=== PATIENT | female | born 1985 | race African-American/Black ===

== ENCOUNTER 2016-11-05 13:27 | Emergency (ER) | payer OTHER ==
[~2016-11-05] VITALS: Ht 165.1 cm; Wt 113.4 kg
[~2016-11-05 13:27] MED LIST: ADVAIR HFA 230M1 AER INH; ALBUTEROL INHAL17 GM IH; ALBUTEROL2.5 MG/0.1 IH; ALBUTEROL2.5 MG/0.5 INH; ALBUTEROL2.5 MG/31 INH; ALBUTEROL2.5 MG/32 IH; ALLEGRA ALLERG180 MG PO; AMOXICILLIN 50500 MG PO; COLACE100 MG PO; DOXYCYCLINE 10100 MG PO; DULERA 200 MCG/13 GM IH; FLONASE 0.05%50 MCG NASAL; GLYCOLAX POWDER17 GM PO; HYDROCODON-ACE1 EAC5 PO; IBUPROFEN 600600 M1 PO; IBUPROFEN 800800 M1 PO; IPRAT-ALBUT 0.5-3 ML IH; MACROBID 100 M100 M1 PO; MEDROL DOSPAK21 TAB PO; MOTION RELIEF25 MG PO; MUCINEX TA600 MG/TA1 PO; NORCO 5-325 TA1 EACH PO; PENICILLIN VK500 M1 PO; PERCOCET 5-3251 EACH; PREDNISONE 10 M10 MG PO; PREDNISONE 20 M20 M1 PO; PREDNISONE 20 M20 MG PO; PREDNISONE 5 MG5 M1 PO; PREDNISONE50 MG PO; PROVENTIL HFA6.7 G1 INH; RANITIDINE 150150 MG PO; SENNA PO; SYMBICORT80 MCG/4.1; TESSALON PERLE100 MG PO; TYLENOL EX-STR500 M2 PO; ULTRAM 50MG TAB50 MG PO; UNK INHALER; VENTOLIN HFA 1818 GM INH; ZOFRAN ODT4 MG PO; ZOFRAN4 MG PO; ZPAK PO; [UNRECOGNIZED DRUG - OTHER]
[2016-11-05] MEDS ORDERED: PENICILLIN VK500 M1 PO (13:33)
[2016-11-05] MEDS ORDERED: NORCO 5-325 TA1 EACH PO (13:33)
== END 2016-11-05 14:10 | disposition home or self-care (01) ==
LOC: ER 13:27
DX: K08.89 Other specified disorders of teeth and supporting structures (principal); J45.909 Unspecified asthma, uncomplicated; G47.30 Sleep apnea, unspecified; E66.9 Obesity, unspecified; Z68.41 Body mass index [BMI] 40.0-44.9, adult

== ENCOUNTER 2017-05-17 11:08 | Emergency (ER) | payer OTHER ==
[~2017-05-17] VITALS: Ht 165.1 cm; Wt 117.9 kg
[2017-05-17] MEDS ORDERED: PREDNISONE 20 M20 MG PO (12:42)
[2017-05-17] MEDS ORDERED: ALBUTEROL2.5 MG/31 INH (12:42)
[2017-05-17] MEDS ORDERED: VENTOLIN HFA 1818 GM INH (12:42)
[2017-05-17 13:46] LABS: ABSOLUTE NEUTROPHILS 1.9 thou/uL (1.4-8.2); BASOPHILS 0.7 % (0.0-2.0); EOSINOPHILS 9.7 % (0.0-3.0); HEMATOCRIT 37.3 % (37.0-47.0); HEMOGLOBIN 12.1 gm/dL (12.0-15.0); LYMPHOCYTES 31.9 % (24.0-44.0); MANUAL DIFF NO; MCH 28.5 pg (26.0-34.0); MCHC 32.4 g/dL (28.0-37.0); MCV 87.8 fL (80.0-100.0); MONOCYTES 10.2 % (1.0-8.0); PLATELET COUNT 251 thou/uL (150-400); POLYS 47.5 % (36.0-66.0); RBC 4.25 mil/uL (4.20-5.00); RDW 13.4 % (10.5-14.5); WBC 3.9 thou/uL (4.0-11.0)
[2017-05-17 13:52] LABS: CALCIUM 8.5 mg/dL (8.5-10.1); CREATININE 0.5 mg/dL (0.6-1.0); POTASSIUM 3.9 mmol/L (3.5-5.1)
[2017-05-17 13:58] LABS: ALBUMIN 2.9 g/dL (3.4-5.0); TOTAL BILIRUBIN 0.2 mg/dL (<0.1-1.0); TOTAL PROTEIN 6.3 g/dL (6.4-8.2)
== END 2017-05-17 14:52 | disposition home or self-care (01) ==
LOC: ER 11:08
PROVIDERS: Emergency Medicine
DX: J45.901 Unspecified asthma with (acute) exacerbation (principal); G47.30 Sleep apnea, unspecified; F10.99 Alcohol use, unspecified with unspecified alcohol-induced disorder; Z88.8 Allergy status to other drugs, medicaments and biological substances

== ENCOUNTER 2019-01-24 23:14 | Emergency (ER) | payer OTHER ==
[~2019-01-24] VITALS: Ht 165.1 cm; Wt 104.3 kg
[2019-01-24 23:44] LABS: URINE BILIRUBIN NEGATIVE (Negative); URINE BLOOD NEGATIVE (Negative); URINE CLARITY CLEAR; URINE COLOR YELLOW; URINE GLUCOSE-RANDOM* NEGATIVE (Negative); URINE KETONES NEGATIVE (Negative); URINE LEUKOCYTES-REFLEX NEGATIVE (Negative); URINE NITRITE-REFLEX NEGATIVE (Negative); URINE PROTEIN (DIPSTICK) TRACE (Negative); URINE SPECIFIC GRAVITY 1.015 (1.005-1.035)
[2019-01-25 00:07] LABS: ABSOLUTE NEUTROPHILS 2.7 thou/uL (1.4-8.2); BASOPHILS 0.6 % (0.0-2.0); EOSINOPHILS 4.5 % (0.0-3.0); HEMATOCRIT 34.7 % (37.0-47.0); HEMOGLOBIN 11.6 gm/dL (12.0-15.0); LYMPHOCYTES 35.9 % (24.0-44.0); MCH 28.7 pg (26.0-34.0); MCHC 33.4 g/dL (28.0-37.0); MCV 86.1 fL (80.0-100.0); MONOCYTES 8.6 % (1.0-8.0); PLATELET COUNT 242 thou/uL (150-400); POLYS 50.4 % (36.0-66.0); RBC 4.03 mil/uL (4.20-5.00); RDW 13.9 % (10.5-14.5); WBC 5.4 thou/uL (4.0-11.0)
[2019-01-25 00:14] LABS: CREATININE 0.6 mg/dL (0.6-1.0); POTASSIUM 3.9 mmol/L (3.5-5.1)
[2019-01-25 00:20] LABS: ALBUMIN 3.1 g/dL (3.4-5.0); TOTAL BILIRUBIN 0.1 mg/dL (<0.1-1.0); TOTAL PROTEIN 7.5 g/dL (6.4-8.2)
[2019-01-25] MEDS ORDERED: NORCO 5-325 TA1 EAC1 PO (05:06)
[2019-01-25 05:16] VITALS: BP 125/50
== END 2019-01-25 05:29 | disposition home or self-care (01) ==
LOC: ER 23:14
PROVIDERS: Emergency Medicine
DX: R10.31 Right lower quadrant pain (principal); R10.32 Left lower quadrant pain; J45.909 Unspecified asthma, uncomplicated; G47.30 Sleep apnea, unspecified; E66.9 Obesity, unspecified; Z68.38 Body mass index [BMI] 38.0-38.9, adult; Z88.6 Allergy status to analgesic agent

== ENCOUNTER 2019-05-03 06:43 | Emergency (ER) | payer OTHER ==
[~2019-05-03] VITALS: Ht 165.1 cm; Wt 122.5 kg
[~2019-05-03 06:43] MED LIST changes: +NORCO 5-325 TA1 EAC1 PO
[2019-05-03] MEDS ORDERED: VENTOLIN HFA 1818 GM INH (08:14)
[2019-05-03] MEDS ORDERED: PREDNISONE 20 M20 MG PO (08:14)
[2019-05-03 08:29] VITALS: BP 118/67
== END 2019-05-03 08:34 | disposition home or self-care (01) ==
LOC: ER 06:43
DX: J45.901 Unspecified asthma with (acute) exacerbation (principal); G47.30 Sleep apnea, unspecified; E66.9 Obesity, unspecified

== ENCOUNTER 2019-09-01 21:21 | Inpatient (IN) | payer OTHER ==
[~2019-09-01] VITALS: Ht 165.1 cm; Wt 128.4 kg
[2019-09-01 21:23] VITALS: BP 144/82
[2019-09-01 21:34] LABS: PCO2 62.2 mmHg (35.0-45.0); PO2 241.2 mmHg (80.0-100.0); sO2 99.3 % (92.0-98.0)
[2019-09-01 21:35] LABS: pH 7.186 (7.360-7.450)
[2019-09-01 21:59] LABS: HEMATOCRIT 37.4 % (37.0-47.0); HEMOGLOBIN 12.1 gm/dL (12.0-15.0); MCH 28.9 pg (26.0-34.0); MCHC 32.3 g/dL (28.0-37.0); MCV 89.4 fL (80.0-100.0); PLATELET COUNT 378 thou/uL (150-400); RBC 4.19 mil/uL (4.20-5.00); RDW 14.4 % (10.5-14.5); WBC 8.8 thou/uL (4.0-11.0)
[2019-09-01 22:07] LABS: ANION GAP 9 mmol/L (7-16); BUN 18 mg/dL (7-18); CALCIUM 8.8 mg/dL (8.5-10.1); CHLORIDE 100 mmol/L (98-107); CO2 26 mmol/L (21-32); CREATININE 0.8 mg/dL (0.6-1.0); GLUCOSE 242 mg/dL (74-106); POTASSIUM 4.4 mmol/L (3.5-5.1); SODIUM 135 mmol/L (136-145)
[2019-09-01 22:15] LABS: TROPONIN-I <0.06 ng/mL (<0.06)
[2019-09-01 22:34] LABS: ABSOLUTE NEUTROPHILS 1.8 thou/uL (1.4-8.2); ANISOCYTOSIS 1+; POLYCHROMASIA OCCASIONAL
[2019-09-02] VITALS (7 sets, daily range): BP systolic 98–137; BP diastolic 58–84
[2019-09-02 02:55] LABS: BE(vivo) -3.2 mmol/L (-2 to +3); HCO3 22.4 mmol/L (22.0-26.0); PO2 62.9 mmHg (80.0-100.0); pH 7.344 (7.360-7.450); sO2 90.9 % (92.0-98.0)
[2019-09-02 22:07] LABS: GLYCOHEMOGLOBIN (HGB A1C) 6.3 % (4.8-5.6)
[2019-09-03 05:54] LABS: HEMATOCRIT 33.9 % (37.0-47.0); MCH 28.9 pg (26.0-34.0); MCHC 32.4 g/dL (28.0-37.0); MCV 89.1 fL (80.0-100.0); RBC 3.8 mil/uL (4.20-5.00); RDW 14.3 % (10.5-14.5); WBC 10.7 thou/uL (4.0-11.0)
[2019-09-03 06:00] LABS: CALCIUM 8.1 mg/dL (8.5-10.1); CREATININE 0.5 mg/dL (0.6-1.0); MAGNESIUM 1.8 mg/dL (1.8-2.4); POTASSIUM 4.3 mmol/L (3.5-5.1)
[2019-09-03 06:06] VITALS: BP 110/67
--- NOTE | 2019-09-03 07:43 | EKG ---
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 : 1985 Requested By: Andrey De La Rosa Order Number: [id number] MD: River Owens Measurements Intervals [place] Rate: 134 P: 74 VA: 138 QRS: 71 QRSD: 101 T: 53 QT: 298 QTc: 445 Interpretive Statements Sinus tachycardia RSR' in V1 or V2, probably normal variant Compared to ECG 05/20/2014 14:49:05 Heart rate has increased Electronically Signed On 09-03-2019 7:42:04 CDT by River Owens [email or web address] <ELECTRONICALLY SIGNED> By: River Owens MD, [facility] 09/03/19 0742 23 23 River Owens MD, [facility] /EPI
[2019-09-03 08:40] VITALS: BP 123/78
[2019-09-03 09:54] VITALS: BP 123/78
[2019-09-03 10:57] LABS: CHOLESTEROL 185 mg/dL (<200); HDL CHOLESTEROL 68 mg/dL (>40); LDL CHOLESTEROL 112 mg/dL (<100); TC:HDL 2.7 Ratio (Not establshd); TRIGLYCERIDE 27 mg/dL (<150); VLDL 5 mg/dL (<40)
[2019-09-03 12:28] VITALS: BP 125/76
[2019-09-03 15:41] VITALS: BP 132/74
[2019-09-03 20:35] VITALS: BP 128/77
[2019-09-04 03:06] LABS: HEP B SURFACE Ab(ANTI-HBS Reactive (()); HEPATITIS B SURFACE AG Negative (Negative); HEPATITIS C VIRUS AB 0.1 (0.0-0.9); HIV ANTIBODY Non Reactive (Non Reactive)
[2019-09-04 06:07] VITALS: BP 113/58
[2019-09-04 09:01] VITALS: BP 104/67
[2019-09-04 12:10] VITALS: BP 132/67
[2019-09-04] MEDS ORDERED: VENTOLIN HFA 1818 GM INH (13:32)
[2019-09-04] MEDS ORDERED: ALBUTEROL2.5 MG/0.5 INH (13:33)
[2019-09-04] MEDS ORDERED: PREDNISONE 10 M10 MG PO (13:36)
[2019-09-04 14:02] VITALS: BP 132/67
== END 2019-09-04 15:09 | disposition home or self-care (01) | DRG 189 ==
LOC: ER 21:21 → EROBS 23:22 → 2N 23:22
PROVIDERS: Emergency Medicine; Nurse Practitioner Family; ADMIT Internal Medicine
DX: J96.01 Acute respiratory failure with hypoxia (principal); J45.901 Unspecified asthma with (acute) exacerbation; Z68.42 Body mass index [BMI] 45.0-49.9, adult; J96.02 Acute respiratory failure with hypercapnia; R73.9 Hyperglycemia, unspecified; E66.01 Morbid (severe) obesity due to excess calories; Z79.899 Other long term (current) drug therapy
CPT/HCPCS: 10081

== ENCOUNTER 2019-11-01 11:19 | Emergency (ER) | payer OTHER ==
[~2019-11-01] VITALS: Ht 165.1 cm; Wt 127.0 kg
[2019-11-01] MEDS ORDERED: MOBIC7.5 MG PO ×2 (14:08→14:09)
[2019-11-01 14:34] VITALS: BP 112/79
== END 2019-11-01 14:34 | disposition home or self-care (01) ==
LOC: ER 11:19
DX: S76.201A Unspecified injury of adductor muscle, fascia and tendon of right thigh, initial encounter (principal); J45.909 Unspecified asthma, uncomplicated; E66.9 Obesity, unspecified; X58.XXXA Exposure to other specified factors, initial encounter; Y93.89 Activity, other specified; Y92.89 Other specified places as the place of occurrence of the external cause; Y99.8 Other external cause status

== ENCOUNTER 2019-11-09 04:19 | Emergency (ER) | payer OTHER ==
[~2019-11-09] VITALS: Ht 165.1 cm; Wt 125.2 kg
[~2019-11-09 04:19] MED LIST changes: +MOBIC7.5 MG PO
[2019-11-09 04:45] LABS: ABSOLUTE NEUTROPHILS 2.5 thou/uL (1.4-8.2); EOSINOPHILS 6.7 % (0.0-3.0); HEMATOCRIT 35.4 % (37.0-47.0); HEMOGLOBIN 11.7 gm/dL (12.0-15.0); LYMPHOCYTES 42.5 % (24.0-44.0); MCH 29.2 pg (26.0-34.0); MCV 88.3 fL (80.0-100.0); PLATELET COUNT 275 thou/uL (150-400); POLYS 41.8 % (36.0-66.0); RBC 4.01 mil/uL (4.20-5.00); WBC 6.1 thou/uL (4.0-11.0)
[2019-11-09 05:05] LABS: CALCIUM 8.4 mg/dL (8.5-10.1); CREATININE 0.7 mg/dL (0.6-1.0)
[2019-11-09] MEDS ORDERED: ALBUTEROL2.5 MG/31 INH (05:44)
[2019-11-09] MEDS ORDERED: PREDNISONE 20 M20 M1 PO (05:44)
[2019-11-09 06:01] VITALS: BP 125/69
== END 2019-11-09 06:05 | disposition home or self-care (01) ==
LOC: ER 04:19
PROVIDERS: Emergency Medicine
DX: J45.901 Unspecified asthma with (acute) exacerbation (principal); E66.9 Obesity, unspecified; G47.30 Sleep apnea, unspecified; Z68.42 Body mass index [BMI] 45.0-49.9, adult; Z98.51 Tubal ligation status

== ENCOUNTER 2020-02-22 04:40 | Emergency (ER) | payer OTHER ==
[~2020-02-22] VITALS: Ht 165.1 cm; Wt 122.5 kg
[2020-02-22 05:22] LABS: ABSOLUTE NEUTROPHILS 2.5 thou/uL (1.4-8.2); BASOPHILS 0.5 % (0.0-2.0); EOSINOPHILS 3.8 % (0.0-3.0); HEMATOCRIT 35.9 % (37.0-47.0); HEMOGLOBIN 11.8 gm/dL (12.0-15.0); LYMPHOCYTES 47.4 % (24.0-44.0); MONOCYTES 7.2 % (1.0-8.0); PLATELET COUNT 246 thou/uL (150-400); POLYS 41.1 % (36.0-66.0); RBC 4.07 mil/uL (4.20-5.00); RDW 14.2 % (10.5-14.5); WBC 6.2 thou/uL (4.0-11.0)
[2020-02-22 05:26] LABS: CALCIUM 8.4 mg/dL (8.5-10.1); CREATININE 0.7 mg/dL (0.6-1.0); POTASSIUM 3.9 mmol/L (3.5-5.1)
[2020-02-22 05:36] LABS: ALBUMIN 3.2 g/dL (3.4-5.0); TOTAL BILIRUBIN 0.2 mg/dL (0.2-1.0); TOTAL PROTEIN 7.2 g/dL (6.4-8.2); TROPONIN-I 0.11 ng/mL (<0.06)
[2020-02-22 07:07] VITALS: BP 127/83
--- NOTE | 2020-02-22 10:21 | EKG ---
[facility] [place] [address] ELECTROCARDIOGRAM REPORT Name: KENIA FITZGERALD Room #: DEP [facility]#: [id number] Admission: 02/22/20 Attend Phys: Discharge: 02/22/20 Date of : 85 Report #: [id number] THIS REPORT FOR: cc: VENKATESH - No family physician/PCP FAM - No family physician/PCP River Owens MD 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
== END 2020-02-22 07:09 | disposition still patient (30) ==
LOC: ER 04:40
PROVIDERS: Emergency Medicine
DX: I21.4 Non-ST elevation (NSTEMI) myocardial infarction (principal); J45.901 Unspecified asthma with (acute) exacerbation; J45.909 Unspecified asthma, uncomplicated; E66.9 Obesity, unspecified; Z68.41 Body mass index [BMI] 40.0-44.9, adult; Z98.51 Tubal ligation status; Z79.899 Other long term (current) drug therapy; Z91.048 Other nonmedicinal substance allergy status

== ENCOUNTER 2020-02-22 07:57 | Inpatient (IN) | payer OTHER ==
[~2020-02-22] VITALS: Ht 165.1 cm; Wt 134.3 kg
[2020-02-22 08:00] VITALS: BP 140/85
[2020-02-22 10:17] VITALS: BP 125/79
[2020-02-22 10:20] VITALS: BP 111/70
--- NOTE | 2020-02-22 10:25 | EKG ---
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 02/22/20 1025 0845 0845 River Owens MD, [facility] /EPI
[2020-02-22 10:40] VITALS: BP 139/95
[2020-02-22 12:37] LABS: CHOLESTEROL 188 mg/dL (<200); HDL CHOLESTEROL 80 mg/dL (>40); TC:HDL 2.4 Ratio (Not establshd); VLDL 3 mg/dL (<40)
[2020-02-22 13:08] LABS: TRIGLYCERIDE < 15 mg/dL (<150)
[2020-02-22 15:25] VITALS: BP 112/57
--- NOTE | 2020-02-22 18:37 | NUR ---
Sandra Goldstein RN entered under Sharon due to issues with [facility]. Pt arrived to the unit alert and responsive, in considerable pain and distress r/t chest. Assessment obtained, she is worried about childcare for her 3 children and a oncology nurse. Her mother is also a pt within the facility. Lungs are diminished as pt has hx of asthma. She ambulates without difficulty. Skin is intact. MD here to see pt and orders for pain meds managed. Later pt reported that she wanted pain meds closer rather than q 6 due to pain in chest normally 02/24. Md notified, changes made along with trop x 2 ordered. Lab made aware. Pt is soha IV fluids, diet, chest pain remains the larger issue. She denies sob however supplemental O2 applied for cardiac comfort.
[2020-02-22 19:30] VITALS: BP 118/68
[2020-02-23 00:32] VITALS: BP 125/75
--- NOTE | 2020-02-23 01:53 | NUR ---
ASSESSMENTS CHARTED, MEDS CHARTED GIVEN. PATIENT RESTING IN BED DURING SHIFT. C/O CHEST PAIN DURING SHIFT. REQUESTED PAIN MED ON THE HOUR IT WAS AVAILABLE UNTIL SHE FELL ASLEEP FOR THE NIGHT. TROPONINS CAME BACK NEGATIVE X 3. MAINTENANCE FLUIDS RUNNING DURING SHIFT. NPO SINCE MIDNIGHT FOR STRESS TEST AND ECHO IN THE AM. TOOK SHOWER BY HER SELF. FALL PRECAUTIONS IN PLACE DURING SHIFT.
[2020-02-23 03:05] LABS: GLYCOHEMOGLOBIN (HGB A1C) 6.4 % (4.8-5.6)
[2020-02-23 04:56] VITALS: BP 121/74
--- NOTE | 2020-02-23 10:19 | 2DMMODE ---
[facility] [place] [address] 2 D/M-MODE ECHOCARDIOGRAM Name: KENIA FITZGERALD Room #: 200-I ADM IN ..#: [id number] Admission: 02/22/20 Attend Phys: Rome Galarza MD Discharge: Date of : 85 Report #: [id number] THIS REPORT FOR: cc: FAM - No family physician/PCP FAM - No family physician/PCP Son Guevara MD ~ APPROVED REPORT Study performed: 02/23/2020 09:30:38 EXAM: Comprehensive 2D, Doppler, and color-flow Echocardiogram Patient Location: Echo lab Room #: 200 Status: routine BSA: 2.35 HR: 91 bpm BP: 121/74 mmHg Rhythm: NSR Other Information Study Quality: Adequate Technically limited study due to morbid obesity. Indications Dyspnea Chest Pain 2D Dimensions RVDd: 40.75 mm IVSd: 11.80 (7-11mm) LVOT Diam: 20.90 (18-24mm) LVDd: 53.53 mm PWd: 8.86 (7-11mm) Ascending Ao: 32.32 (22-36mm) LVDs: 31.34 (25-40mm) Aortic Root: 30.43 mm Volumes Left Atrial Volume (Systole) Single Plane 4CH: 51.37 mL Single Plane 2CH: 56.51 mL Aortic Valve AoV Peak Elfego.: 1.39 m/s AO Peak Gr.: 7.69 mmHg LVOT Max P.84 mmHg LVOT Max V: 1.10 m/s [facility] [address] [address] 2 D/M-MODE ECHOCARDIOGRAM Name: AMILCARKENIANenita GARCIA Room #: 200-I [facility] IN ..#: [id number] Admission: 02/22/20 Attend Phys: Rome Galarza Discharge: Date of : 85 Report #: [id number] Vmax: 2.72 cm2 Mitral Valve E/A Ratio: 0.8 MV Decel. Time: 142.52 ms MV E Max Elfego.: 1.12 m/s MV A Elfego.: 1.34 m/s MV PHT: 41.33 ms IVRT: 62.28 ms Pulmonary Valve PV Peak Elfego.: 1.45 m/s PV Peak Gr.: 8.44 mmHg Pulmonary Vein P Vein S: 0.72 m/s P Vein D: 0.46 m/s P Vein S/D Ratio: 1.57 Tricuspid Valve TR Peak Elfego.: 3.01 m/s RAP Estimate: 15.00 mmHg TR Peak Gr.: 36.26 mmHg PA Pressure: 51.00 mmHg Left Ventricle The left ventricle is normal size. There is normal LV segmental wall motion. Mild basal septal hypertrophy is present. Left ventricular systolic function is normal. LVEF is 55-60%. Mild diastolic dysfunction is present (impaired relaxation pattern). Right Ventricle The right ventricle is normal size. The right ventricular systolic function is normal. Atria The left atrium size is normal. The right atrium size is normal. Aortic Valve The aortic valve is normal in structure. No aortic regurgitation is present. There is no aortic valvular stenosis. Mitral Valve The mitral valve is normal in structure. Moderate mitral regurgitation. Tricuspid Valve [facility] [address] [address] 2 D/M-MODE ECHOCARDIOGRAM Name: KENIA FITZGERALD RADHA Room #: 200I [facility] IN .R.#: [id number] Admission: 02/22/20 Attend Phys: Rome Galarza Discharge: Date of : 85 Report #: [id number] The tricuspid valve is normal in structure. Mild tricuspid regurgitation. Estimated PAP is 45-50mmHg. Pulmonic Valve Pulmonic valve is not well visualized. There is no pulmonic valvular regurgitation noted. Great Vessels The aortic root is normal in size. The ascending aorta is normal in size. IVC is dilated and collapses <50% with inspiration. Pericardium There is no pericardial effusion. <Conclusion> The left ventricle is normal size. LVEF is 55-60%. The aortic valve is normal in structure. The mitral valve is normal in structure. Moderate mitral regurgitation. The tricuspid valve is normal in structure. Mild tricuspid regurgitation. Estimated PAP is 45-50mmHg. Pulmonic valve is not well visualized. There is no pericardial effusion. <ELECTRONICALLY SIGNED> By: Son Guevara MD 02/23/20 1018 1018 1018 Son Guevara MD /INF
--- NOTE | 2020-02-23 13:24 | NUR ---
ASSUMED CARE OF PT MIDSHIFT, CALLED RE: CARDIAC STRESS TEST AND TEST ORDERED WE DO NOT DO. CALLED DR. STEVENSON AND RE-ORDERED TEST, NUC MED CANNOT DO IT TODAY. ONLY CONSULT ON HER CASE IF PULMONOLOGY. PT W/GOOD APPETITE, UP AD HANNAH STEADY AND A&0X4, ANOTHER RN ADM PAIN MEDICATION PER PT'S REQUEST. WILL CONTINUE TO MONITOR
[2020-02-23 16:03] VITALS: BP 117/74
[2020-02-23 17:14] VITALS: BP 117/74
== END 2020-02-23 17:54 | disposition home or self-care (01) | DRG 313 ==
LOC: ER 07:57 → EROBS 10:03 → 2N 10:27
PROVIDERS: ADMIT Internal Medicine; ATTEND Internal Medicine
DX: R07.89 Other chest pain (principal); Z68.42 Body mass index [BMI] 45.0-49.9, adult; J45.41 Moderate persistent asthma with (acute) exacerbation; E66.01 Morbid (severe) obesity due to excess calories; E78.5 Hyperlipidemia, unspecified; I27.20 Pulmonary hypertension, unspecified; G47.33 Obstructive sleep apnea (adult) (pediatric)
CPT/HCPCS: 10081

== ENCOUNTER 2020-03-23 21:08 | Emergency (ER) | payer OTHER ==
[~2020-03-23] VITALS: Ht 162.6 cm; Wt 122.5 kg
[2020-03-24] MEDS ORDERED: ADVAIR 250-501 EACH INH (02:48)
[2020-03-24] MEDS ORDERED: VENTOLIN HFA 1818 GM INH (02:48)
[2020-03-24] MEDS ORDERED: ALBUTEROL2.5 MG/31 INH (02:48)
[2020-03-24] MEDS ORDERED: PREDNISONE50 MG PO (02:49)
[2020-03-24 02:56] VITALS: BP 113/61
== END 2020-03-24 03:10 | disposition home or self-care (01) ==
LOC: ER 21:08
DX: J45.909 Unspecified asthma, uncomplicated (principal); G47.30 Sleep apnea, unspecified; E66.9 Obesity, unspecified; Z68.42 Body mass index [BMI] 45.0-49.9, adult; Z98.51 Tubal ligation status

== ENCOUNTER 2020-05-02 22:33 | Inpatient (IN) | payer OTHER ==
[~2020-05-02] VITALS: Ht 165.1 cm; Wt 122.5 kg
[~2020-05-02 22:33] MED LIST changes: +ADVAIR 250-501 EACH INH
[2020-05-02 22:34] VITALS: BP 121/89
[2020-05-03] VITALS (7 sets, daily range): BP systolic 127–144; BP diastolic 62–73
[2020-05-03 02:50] LABS: CREATININE 0.8 mg/dL (0.6-1.0); POTASSIUM 4.1 mmol/L (3.5-5.1)
[2020-05-03 02:51] LABS: ABSOLUTE NEUTROPHILS 6.3 thou/uL (1.4-8.2); BASOPHILS 0.1 % (0.0-2.0); EOSINOPHILS 0.2 % (0.0-3.0); HEMATOCRIT 37.2 % (37.0-47.0); HEMOGLOBIN 12.2 gm/dL (12.0-15.0); LYMPHOCYTES 6.7 % (24.0-44.0); MCH 29.4 pg (26.0-34.0); MCHC 32.9 g/dL (28.0-37.0); MCV 89.6 fL (80.0-100.0); PLATELET COUNT 274 thou/uL (150-400); RBC 4.15 mil/uL (4.20-5.00); RDW 14.8 % (10.5-14.5)
--- NOTE | 2020-05-03 10:01 | EKG ---
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 : 1985 Requested By: Monserrat Borges Order Number: [id number] MD: Can Matamoros Measurements Intervals [place] Rate: 121 P: 77 [place]: 171 QRS: 58 QRSD: 97 T: 14 QT: 332 QTc: 471 Interpretive Statements Sinus tachycardia Probable left atrial enlargement RSR' in V1 or V2, right VCD or RVH Borderline prolonged QT interval Compared to ECG 02/22/2020 08:45:25 Right ventricular hypertrophy now present RSR' in V1 or V2 now present Sinus rhythm no longer present Electronically Signed On 05-03-2020 10:01:41 RATE ENGINEER by Can Matamoros [email or web address] <ELECTRONICALLY SIGNED> By: Can Matamoros MD, FACC 05/03/20 1001 51 51 Can Matamoros MD, FAC /EPI
--- NOTE | 2020-05-03 16:39 | NUR ---
INFECTIOUS DISEASE SUPPERVISOR CLEARED PT TO BE REMOVED FROM COVID ISOLATION
[2020-05-04 00:15] VITALS: BP 133/73
--- NOTE | 2020-05-04 04:42 | NUR ---
PT NEW ADMIT FROM ER, ALERT AND ORIENTED. INDEPENDENT IN HER ROOM. ALL THE ADMISSION COMPLETED. PT C/O OF THICK PRODUCTIVE COUGH, AND A HEADACHE , RATING IT 7/10, AND 10/10 RESPECTIVELY. SHE STATES THAT IBU[employer]OF[employer] DOES NOT WORKN FOR HER AND DOES NOT WANT TYLENOL. IRON ERECTOR NOTIFIED. PT REQUESTED TRAMADOL AND MUCINEX. PT REMAINS SR, TO ST ON THE MONITOR. PT CURRENTLY CHEST PAIN FREE, NO NAUSEA VOMITING OR DIARREA REPORTED. WILL CONTINUE TO FOLLOW POC.
[2020-05-04 04:45] VITALS: BP 121/67
[2020-05-04] MEDS ORDERED: RAYOS5 MG PO (08:44)
[2020-05-04] MEDS ORDERED: TRAMADOL 50 MG50 MG PO (09:19)
[2020-05-04] MEDS ORDERED: ADVAIR 250-501 EACH INH (09:19)
[2020-05-04 09:51] VITALS: BP 121/67
== END 2020-05-04 11:20 | disposition home or self-care (01) | DRG 202 ==
LOC: ER 22:33 → EROBS 05-03 02:14 → 2N 05-03 17:45
PROVIDERS: Emergency Medicine; ADMIT Hospitalist; ATTEND Hospitalist
DX: J45.901 Unspecified asthma with (acute) exacerbation (principal); Z68.41 Body mass index [BMI] 40.0-44.9, adult; G47.33 Obstructive sleep apnea (adult) (pediatric); E66.01 Morbid (severe) obesity due to excess calories; Z20.828 Contact with and (suspected) exposure to other viral communicable diseases; Z91.14 Patient's other noncompliance with medication regimen; Z79.899 Other long term (current) drug therapy
CPT/HCPCS: 10081

== ENCOUNTER 2020-11-23 18:44 | Emergency (ER) | payer OTHER ==
[~2020-11-23] VITALS: Ht 165.1 cm; Wt 122.5 kg
[~2020-11-23 18:44] MED LIST changes: +RAYOS5 MG PO; +TRAMADOL 50 MG50 MG PO
[2020-11-23] MEDS ORDERED: PREDNISONE 10 M10 M1 PO (19:09)
[2020-11-23] MEDS ORDERED: FLONASE 0.05%50 MCG NARES (19:09)
[2020-11-23] MEDS ORDERED: PROAIR HFA8.5 GM INH (19:09)
[2020-11-23 19:42] VITALS: BP 134/77
== END 2020-11-23 19:40 | disposition home or self-care (01) ==
LOC: ER 18:44
DX: J45.901 Unspecified asthma with (acute) exacerbation (principal); J30.1 Allergic rhinitis due to pollen; E66.9 Obesity, unspecified; Z98.51 Tubal ligation status; Z79.899 Other long term (current) drug therapy

== ENCOUNTER 2021-05-23 13:08 | Emergency (ER) | payer OTHER ==
[~2021-05-23] VITALS: Ht 165.1 cm; Wt 127.0 kg
[~2021-05-23 13:08] MED LIST changes: +FLONASE 0.05%50 MCG NARES; +PREDNISONE 10 M10 M1 PO; +PROAIR HFA8.5 GM INH
[2021-05-23] MEDS ORDERED: PREDNISONE 20 M20 MG PO (14:36)
[2021-05-23 14:48] VITALS: BP 132/81
[2021-05-23] MEDS ORDERED: PROAIR HFA8.5 GM INH (15:01)
[2021-05-23] MEDS ORDERED: ALBUTEROL2.5 MG/0.1 INH (15:01)
== END 2021-05-23 14:48 | disposition home or self-care (01) ==
LOC: ER 13:08
DX: J45.901 Unspecified asthma with (acute) exacerbation (principal); Z20.822 Contact with and (suspected) exposure to COVID-19; E66.9 Obesity, unspecified; Z98.51 Tubal ligation status; Z79.899 Other long term (current) drug therapy

== ENCOUNTER 2021-07-20 11:47 | Emergency (ER) | payer OTHER ==
[~2021-07-20] VITALS: Ht 165.1 cm; Wt 127.0 kg
--- NOTE | ~2021-07-20 | EMS ---
[address] [address] EMS Patient Care Report Name: KENIA FITZGERALD Room #: DEP GABE Monique#: [id number] Admission: 07/20/21 Attend Phys: Discharge: 07/20/21 Date of : 85 Report #: [id number] THIS REPORT FOR: //name// Report Transmitted: 07/23/2021 23:30 EMS Care Summary [facility] Incident [id number] @ 07/20/2021 10:56 Incident Location [facility] [address] [place] [address] Patient KENIA FITZGERALD Female, 36 Years 1985 Patient Address [facility] [address] [place] [address] Patient History Asthma,Sleep Apnea, Patient Allergies No known allergies, Patient Medications Proair, Albuterol, Chief Complaint Shortness of breath Disposition Transported No Lights/[place] Dispatch Reason Breathing Problem Transported To [facility] Narrative Dispatch: [employer] Squad # [id number] dispatched emergent to the listed location on a report of breathing problems Delta Chief condition: SOA [address] [address] EMS Patient Care Report Name: KENIA FITZGERALD Room #: [facility]P [facility] [id number] Admission: 07/20/21 Attend Phys: Discharge: 07/20/21 Date of : 85 Report #: [id number] History of Event: EMS arrived to find 36 yo female with Pumper 52 providing initial care , upon approach pt had expiratory wheezing with a history of sleep apnea and severe asthma . pt stated she woke from her nap with wheezing and utilized her ProAir inhaler 2 time and gave one nebulized albuterol treatment before EMS arrival . pt agreed to be treated and transported to [facility] for further evaluation and care . pt reported improvement i condition with EMS treatments upon arrival at facility Assessment: Initial Exam: Patient presents fully alert. GCS: 15. Airway is self-maintained. Respirations are spontaneous, adequate but labored. Skin is warm/dry. Radial pulse is strong and regular. Pt is oriented x4. HEENT: EENT intact and clear; Pupils are equal, round, reactive to light, denies dizziness Neuro: Pt is oriented and appropriate, with no deficits noted. 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 Neck: No JVD noted. Trachea is midline. No complaints. Chest: Non-tender with equal rise and fall, denies pain on inspiration Lungs: wheezing to auscultation bilaterally, adequate air movement. Abdomen: Non-distended/soft, non-tender no guarding present. GI/: No incontinence / normal. Pelvis: Stable/non-tender. Back - Non-tender, no complaints. Extremities Upper: Noted to have adequate PMS, 18 GA IV access to right AC Extremities Lower: Noted to have adequate PMS, without edema. Rx: Assessment, vitals monitoring, albuterol nebulized with 8 lpm O2 , cardiac monitoring, IV access 18 GA , solumedrol 125mg IV, ETCO2 monitoring , blood glucose 121 , safe transport to [facility] [address] [place] [address] EMS Patient Care Report Name: ALFREDO FITZGERALDNenita GARCIA Room #: DEP GABE Monique#: [id number] Admission: 07/20/21 Attend Phys: Discharge: 07/20/21 Date of : 85 Report #: [id number] Transport: Responded urgently. Unit arrived. Pt assessment, vitals obtained, pt consent for transport, patient moved to cot by ambulating with assistance , secured semi mercedes's with safety straps x3 and blanket. Cot secured in ambulance. vitals and belt builder helper, IV 18 GA right AC , BGL-121. Transport initiated. Comfort care provided. Patient report given to receiving facility prior to arrival, no acute changes with pt. tolerating all interventions / medications administered. Report to and care assumed by nurse signed on consent form. Pt. moved to hospital bed ED room 7. EOR [id number] Thiago Monae [employer] Initial Vitals @11:21P: 124,SpO2: 100,SD Suspected: false @11:34MI Suspected: false @11:34P: 120,R: 24,EtCO2: 42,SpO2: 99, @11:39P: 120,R: 25,EtCO2: 40,SpO2: 98, @11:20P: 125,R: 28,BP: 163/99,Glucose: 121,SpO2: 100, @11:38P: 119,R: 26,BP: 136/81,Pain: 0/10,GCS: 15,EtCO2: 40,SpO2: 100,Revised Trauma: 12, @PTAP: 126,R: 24,BP: 152/92,Pain: 0/10,GCS: 15,SpO2: 94,Revised Trauma: 12, Impression Shortness of breath Procedures @11:10 ALS Assessment Response: UnchangedSucceeded @11:11 Albuterol - 2.5 Milligrams (mg) - Nebulized Response: Improved @11:34 12-Lead ECG Response: UnchangedSucceeded @11:27 Solu-Medrol - 125 Milligrams (mg) - Intravenous (IV) Response: Improved @11:11 Oxygen FlowRate: 8 Device: Nebulizer Response: ImprovedSucceeded @11:26 IV Therapy - Saline Lock 10cc (18 ga) Site: Antecubital-Right Response: UnchangedSucceeded @11:21 3-Lead ECG Response: UnchangedSucceeded Timeline 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,BP: 152/92 M,PULSE: 126,RR: 24 R,SPO2: 94 Ox,ETCO2: ,BG: ,PAIN: 0,GCS: 15, 10:55,Call Received 10:55,Psap Call 10:56,Dispatched 10:58,En Route 10:59,Initial Responder On Scene 11:07,On Scene 11:10,At Patient [address] [address] EMS Patient Care Report Name: KENIA FITZGERALD Room #: DEP GABE oMnique#: [id number] Admission: 07/20/21 Attend Phys: Discharge: 07/20/21 Date of : 85 Report #: [id number] 11:10,ALS Assessment,Response: UnchangedSucceeded, 11:11,Oxygen FlowRate: 8 Device: Nebulizer Response: ImprovedSucceeded, 11:11,Albuterol - 2.5 Milligrams (mg) - Nebulized,Response: Improved 11:20,BP: 163/99 M,PULSE: 125,RR: 28 R,SPO2: 100 Ox,ETCO2: ,B,PAIN: ,GCS: , 11:21,BP: / M,PULSE: 124,RR: R,SPO2: 100 Ox,ETCO2: ,BG: ,PAIN: ,GCS: , 11:21,3-Lead ECG,Response: UnchangedSucceeded, 11:26,IV Therapy - Saline Lock 10cc 18 ga Site: Antecubital-Right,Response: UnchangedSucceeded, 11:27,Solu-Medrol - 125 Milligrams (mg) - Intravenous (IV),Response: Improved 11:29,Depart Scene 11:34,BP: / M,PULSE: 120,RR: 24 R,SPO2: 99 Ox,ETCO2: 42 ,BG: ,PAIN: ,GCS: , 11:34,12-Lead ECG,Response: UnchangedSucceeded, 11:34,BP: / M,PULSE: ,RR: R,SPO2: Ox,ETCO2: ,BG: ,PAIN: ,GCS: , 11:38,BP: 136/81 M,PULSE: 119,RR: 26 R,SPO2: 100 Ox,ETCO2: 40 ,BG: ,PAIN: 0,GCS: 15, 11:39,BP: / M,PULSE: 120,RR: 25 R,SPO2: 98 Ox,ETCO2: 40 ,BG: ,PAIN: ,GCS: , 11:43,At Destination 11:50,Transfer Patient 12:01,Call Closed Disclaimer v1.1 Copyright 2021 [employer] This EMS Care Summary contains data elements from the applicable legal record (which may be displayed differently). It is designed to provide pertinent information for the following purposes: continuity of care, clinical quality, and state data reporting. The complete legal record is available to ED staff and administrators of the receiving hospital in [facility]'s Patient Tracker. All data is provided "as is."
--- NOTE | ~2021-07-20 | EMS ---
[address] [address] EMS Patient Care Report Name: KENIA FITZGERALD Room #: DEP GABE Monique#: [id number] Admission: 07/20/21 Attend Phys: Discharge: 07/20/21 Date of : [birth year] Report #: [id number] THIS REPORT FOR: //name// Report Transmitted: 07/20/2021 16:10 EMS Care Summary [facility] Incident [id number] @ 07/20/2021 10:56 Incident Location [facility] [address] [place] [address] Patient KENIA FITZGERALD Female, 36 Years 1985 Patient Address [facility] [address] [place] [address] Patient History Asthma,Sleep Apnea, Patient Allergies No known allergies, Patient Medications Proair, Albuterol, Chief Complaint Shortness of breath Disposition Transported No Lights/[place] Dispatch Reason Breathing Problem Transported To [facility] Narrative Dispatch: [employer] Squad # 52 dispatched emergent to the listed location on a report of breathing problems [place] Chief condition: SOA [address] [address] EMS Patient Care Report Name: KENIA FITZGERALD Room #: DEP Piper#: [id number] Admission: 07/20/21 Attend Phys: Discharge: 07/20/21 Date of : [birth year] Report #: [id number] History of Event: EMS arrived to find 36 yo female with Pumper 52 providing initial care , upon approach pt had expiratory wheezing with a history of sleep apnea and severe asthma . pt stated she woke from her nap with wheezing and utilized her ProAir inhaler 2 time and gave one nebulized albuterol treatment before EMS arrival . pt agreed to be treated and transported to [facility] for further evaluation and care . pt reported improvement i condition with EMS treatments upon arrival at facility Assessment: Initial Exam: Patient presents fully alert. GCS: 15. Airway is self-maintained. Respirations are spontaneous, adequate but labored. Skin is warm/dry. Radial pulse is strong and regular. Pt is oriented x4. HEENT: EENT intact and clear; Pupils are equal, round, reactive to light, denies dizziness Neuro: Pt is oriented and appropriate, with no deficits noted. No facial droop noted, speech is not slurred, No arm drift, tile designer/push/pulls are equal/symmetric. Neck: No JVD noted. Trachea is midline. No complaints. Chest: Non-tender with equal rise and fall, denies pain on inspiration Lungs: wheezing to auscultation bilaterally, adequate air movement. Abdomen: Non-distended/soft, non-tender no guarding present. GI/: No incontinence / normal. Pelvis: Stable/non-tender. Back - Non-tender, no complaints. Extremities Upper: Noted to have adequate PMS, 18 GA IV access to right AC Extremities Lower: Noted to have adequate PMS, without edema. Rx: Assessment, vitals monitoring, albuterol nebulized with 8 lpm O2 , cardiac monitoring, IV access 18 GA , solumedrol 125mg IV, ETCO2 monitoring , blood glucose 121 , safe transport to [facility] [address] [place] [address] EMS Patient Care Report Name: ALFREDO FITZGERALDNenita GARCIA Room #: DEP GABE Monique#: [id number] Admission: 07/20/21 Attend Phys: Discharge: 07/20/21 Date of : [birth year] Report #: [id number] Transport: Responded urgently. Unit arrived. Pt assessment, vitals obtained, pt consent for transport, patient moved to cot by ambulating with assistance , secured semi mercedes's with safety straps x3 and blanket. Cot secured in ambulance. vitals and certified nurse aide, IV 18 GA right AC , BGL-121. Transport initiated. Comfort care provided. Patient report given to receiving facility prior to arrival, no acute changes with pt. tolerating all interventions / medications administered. Report to and care assumed by nurse signed on consent form. Pt. moved to hospital bed ED room 7. EOR [id number] Thiago Monae [employer] Initial Vitals @11:21P: 124,SpO2: 100, @11:34 @11:34P: 120,R: 24,EtCO2: 42,SpO2: 99, @11:39P: 120,R: 25,EtCO2: 40,SpO2: 98, @11:20P: 125,R: 28,BP: 163/99,Glucose: 121,SpO2: 100, @11:38P: 119,R: 26,BP: 136/81,Pain: 0/10,GCS: 15,EtCO2: 40,SpO2: 100,Revised Trauma: 12, @PTAP: 126,R: 24,BP: 152/92,Pain: 0/10,GCS: 15,SpO2: 94,Revised Trauma: 12, Impression Shortness of breath Procedures @11:10 ALS Assessment Response: UnchangedSucceeded @11:11 Albuterol - 2.5 Milligrams (mg) - Nebulized Response: Improved @11:34 12-Lead ECG Response: UnchangedSucceeded @11:27 Solu-Medrol - 125 Milligrams (mg) - Intravenous (IV) Response: Improved @11:11 Oxygen FlowRate: 8 Device: Nebulizer Response: ImprovedSucceeded @11:26 IV Therapy - Saline Lock 10cc (18 ga) Site: Antecubital-Right Response: UnchangedSucceeded @11:21 3-Lead ECG Response: UnchangedSucceeded Timeline 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,BP: 152/92 M,PULSE: 126,RR: 24 R,SPO2: 94 Ox,ETCO2: ,BG: ,PAIN: 0,GCS: 15, 10:55,Call Received 10:55,Psap Call 10:56,Dispatched 10:58,En Route 10:59,Initial Responder On Scene 11:07,On Scene 11:10,At Patient [address] [address] EMS Patient Care Report Name: KENIA FITZGERALD RADHA Room #: DEP GABE Monique#: [id number] Admission: 07/20/21 Attend Phys: Discharge: 07/20/21 Date of : [birth year] Report #: [id number] 11:10,ALS Assessment,Response: UnchangedSucceeded, 11:11,Oxygen FlowRate: 8 Device: Nebulizer Response: ImprovedSucceeded, 11:11,Albuterol - 2.5 Milligrams (mg) - Nebulized,Response: Improved 11:20,BP: 163/99 M,PULSE: 125,RR: 28 R,SPO2: 100 Ox,ETCO2: ,B,PAIN: ,GCS: , 11:21,BP: / M,PULSE: 124,RR: R,SPO2: 100 Ox,ETCO2: ,BG: ,PAIN: ,GCS: , 11:21,3-Lead ECG,Response: UnchangedSucceeded, 11:26,IV Therapy - Saline Lock 10cc 18 ga Site: Antecubital-Right,Response: UnchangedSucceeded, 11:27,Solu-Medrol - 125 Milligrams (mg) - Intravenous (IV),Response: Improved 11:29,Depart Scene 11:34,BP: / M,PULSE: 120,RR: 24 R,SPO2: 99 Ox,ETCO2: 42 ,BG: ,PAIN: ,GCS: , 11:34,12-Lead ECG,Response: UnchangedSucceeded, 11:34,BP: / M,PULSE: ,RR: R,SPO2: Ox,ETCO2: ,BG: ,PAIN: ,GCS: , 11:38,BP: 136/81 M,PULSE: 119,RR: 26 R,SPO2: 100 Ox,ETCO2: 40 ,BG: ,PAIN: 0,GCS: 15, 11:39,BP: / M,PULSE: 120,RR: 25 R,SPO2: 98 Ox,ETCO2: 40 ,BG: ,PAIN: ,GCS: , 11:43,At Destination 11:50,Transfer Patient 12:01,Call Closed Disclaimer v1.1 Copyright 2021 [employer] This EMS Care Summary contains data elements from the applicable legal record (which may be displayed differently). It is designed to provide pertinent information for the following purposes: continuity of care, clinical quality, and state data reporting. The complete legal record is available to ED staff and administrators of the receiving hospital in [facility]'s Patient Tracker. All data is provided "as is."
--- NOTE | ~2021-07-20 | EMS ---
[address] [address] EMS Patient Care Report Name: KENIA FITZGERALD Room #: DEP GABE Monique#: [id number] Admission: 07/20/21 Attend Phys: Discharge: 07/20/21 Date of : [birth year] Report #: [id number] THIS REPORT FOR: //name// Report Transmitted: 07/20/2021 17:15 EMS Care Summary [facility] Incident [phone] @ 07/20/2021 10:56 Incident Location [facility] [address] [place] [address] Patient KENIA FITZGERALD Female, 36 Years 1985 Patient Address [facility] [address] [place] [address] Patient History Asthma,Sleep Apnea, Patient Allergies No known allergies, Patient Medications Proair, Albuterol, Chief Complaint Shortness of breath Disposition Transported No Lights/[place] Dispatch Reason Breathing Problem Transported To [facility] Narrative Dispatch: [employer] Squad # 52 dispatched emergent to the listed location on a report of breathing problems [place] Chief condition: SOA [address] [address] EMS Patient Care Report Name: KENIA FITZGERALD Room #: DEP Eneida#: [id number] Admission: 07/20/21 Attend Phys: Discharge: 07/20/21 Date of : [birth year] Report #: [id number] History of Event: EMS arrived to find 36 yo female with Pumper 52 providing initial care , upon approach pt had expiratory wheezing with a history of sleep apnea and severe asthma . pt stated she woke from her nap with wheezing and utilized her ProAir inhaler 2 time and gave one nebulized albuterol treatment before EMS arrival . pt agreed to be treated and transported to [facility] for further evaluation and care . pt reported improvement i condition with EMS treatments upon arrival at facility Assessment: Initial Exam: Patient presents fully alert. GCS: 15. Airway is self-maintained. Respirations are spontaneous, adequate but labored. Skin is warm/dry. Radial pulse is strong and regular. Pt is oriented x4. HEENT: EENT intact and clear; Pupils are equal, round, reactive to light, denies dizziness Neuro: Pt is oriented and appropriate, with no deficits noted. No facial droop noted, speech is not slurred, No arm drift, advanced practice provider/push/pulls are equal/symmetric. Neck: No JVD noted. Trachea is midline. No complaints. Chest: Non-tender with equal rise and fall, denies pain on inspiration Lungs: wheezing to auscultation bilaterally, adequate air movement. Abdomen: Non-distended/soft, non-tender no guarding present. GI/: No incontinence / normal. Pelvis: Stable/non-tender. Back - Non-tender, no complaints. Extremities Upper: Noted to have adequate PMS, 18 GA IV access to right AC Extremities Lower: Noted to have adequate PMS, without edema. Rx: Assessment, vitals monitoring, albuterol nebulized with 8 lpm O2 , cardiac monitoring, IV access 18 GA , solumedrol 125mg IV, ETCO2 monitoring , blood glucose 121 , safe transport to [facility] [address] [place] [address] EMS Patient Care Report Name: ALFREDO FITZGERALDNenita GARCIA Room #: DEP GABE Monique#: [id number] Admission: 07/20/21 Attend Phys: Discharge: 07/20/21 Date of : [birth year] Report #: [id number] Transport: Responded urgently. Unit arrived. Pt assessment, vitals obtained, pt consent for transport, patient moved to cot by ambulating with assistance , secured semi mercedes's with safety straps x3 and blanket. Cot secured in ambulance. 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 Transport initiated. Comfort care provided. Patient report given to receiving facility prior to arrival, no acute changes with pt. tolerating all interventions / medications administered. Report to and care assumed by nurse signed on consent form. Pt. moved to hospital bed ED room 7. EOR [id number] Thiago Monae [employer] Initial Vitals @11:21P: 124,SpO2: 100, @11:34 @11:34P: 120,R: 24,EtCO2: 42,SpO2: 99, @11:39P: 120,R: 25,EtCO2: 40,SpO2: 98, @11:20P: 125,R: 28,BP: 163/99,Glucose: 121,SpO2: 100, @11:38P: 119,R: 26,BP: 136/81,Pain: 0/10,GCS: 15,EtCO2: 40,SpO2: 100,Revised Trauma: 12, @PTAP: 126,R: 24,BP: 152/92,Pain: 0/10,GCS: 15,SpO2: 94,Revised Trauma: 12, Impression Shortness of breath Procedures @11:10 ALS Assessment Response: UnchangedSucceeded @11:11 Albuterol - 2.5 Milligrams (mg) - Nebulized Response: Improved @11:34 12-Lead ECG Response: UnchangedSucceeded @11:27 Solu-Medrol - 125 Milligrams (mg) - Intravenous (IV) Response: Improved @11:11 Oxygen FlowRate: 8 Device: Nebulizer Response: ImprovedSucceeded @11:26 IV Therapy - Saline Lock 10cc (18 ga) Site: Antecubital-Right Response: UnchangedSucceeded @11:21 3-Lead ECG Response: UnchangedSucceeded Timeline WILLOW WORKER,BP: 152/92 M,PULSE: 126,RR: 24 R,SPO2: 94 Ox,ETCO2: ,BG: ,PAIN: 0,GCS: 15, 10:55,Call Received 10:55,Psap Call 10:56,Dispatched 10:58,En Route 10:59,Initial Responder On Scene 11:07,On Scene 11:10,At Patient [address] [address] EMS Patient Care Report Name: KENIA FITZGERALD RADHA Room #: DEP GABE Monique#: [id number] Admission: 07/20/21 Attend Phys: Discharge: 07/20/21 Date of : [birth year] Report #: [id number] 11:10,ALS Assessment,Response: UnchangedSucceeded, 11:11,Oxygen FlowRate: 8 Device: Nebulizer Response: ImprovedSucceeded, 11:11,Albuterol - 2.5 Milligrams (mg) - Nebulized,Response: Improved 11:20,BP: 163/99 M,PULSE: 125,RR: 28 R,SPO2: 100 Ox,ETCO2: ,B,PAIN: ,GCS: , 11:21,BP: / M,PULSE: 124,RR: R,SPO2: 100 Ox,ETCO2: ,BG: ,PAIN: ,GCS: , 11:21,3-Lead ECG,Response: UnchangedSucceeded, 11:26,IV Therapy - Saline Lock 10cc 18 ga Site: Antecubital-Right,Response: UnchangedSucceeded, 11:27,Solu-Medrol - 125 Milligrams (mg) - Intravenous (IV),Response: Improved 11:29,Depart Scene 11:34,BP: / M,PULSE: 120,RR: 24 R,SPO2: 99 Ox,ETCO2: 42 ,BG: ,PAIN: ,GCS: , 11:34,12-Lead ECG,Response: UnchangedSucceeded, 11:34,BP: / M,PULSE: ,RR: R,SPO2: Ox,ETCO2: ,BG: ,PAIN: ,GCS: , 11:38,BP: 136/81 M,PULSE: 119,RR: 26 R,SPO2: 100 Ox,ETCO2: 40 ,BG: ,PAIN: 0,GCS: 15, 11:39,BP: / M,PULSE: 120,RR: 25 R,SPO2: 98 Ox,ETCO2: 40 ,BG: ,PAIN: ,GCS: , 11:43,At Destination 11:50,Transfer Patient 12:01,Call Closed Disclaimer v1.1 Copyright 2021 [employer] This EMS Care Summary contains data elements from the applicable legal record (which may be displayed differently). It is designed to provide pertinent information for the following purposes: continuity of care, clinical quality, and state data reporting. The complete legal record is available to ED staff and administrators of the receiving hospital in [facility]'s Patient Tracker. All data is provided "as is."
[~2021-07-20 11:47] MED LIST changes: +ALBUTEROL2.5 MG/0.1 INH
[2021-07-20 12:15] LABS: HEMATOCRIT 35.1 % (37.0-47.0); HEMOGLOBIN 11.7 gm/dL (12.0-15.0); MCH 28.9 pg (26.0-34.0); MCHC 33.2 g/dL (28.0-37.0); RBC 4.04 mil/uL (4.20-5.00); RDW 14.2 % (10.5-14.5); WBC 5.8 thou/uL (4.0-11.0)
[2021-07-20 12:32] LABS: CALCIUM 8.4 mg/dL (8.5-10.1); CREATININE 0.6 mg/dL (0.6-1.0); POTASSIUM 3.8 mmol/L (3.5-5.1)
[2021-07-20 12:34] LABS: ALBUMIN 3.2 g/dL (3.4-5.0); MAGNESIUM 1.7 mg/dL (1.8-2.4); TOTAL BILIRUBIN 0.5 mg/dL (0.2-1.0); TOTAL PROTEIN 7.3 g/dL (6.4-8.2)
[2021-07-20] MEDS ORDERED: PREDNISONE 20 M20 MG PO (14:40)
[2021-07-20] MEDS ORDERED: PROAIR HFA8.5 GM INH (15:28)
[2021-07-20 16:08] VITALS: BP 135/84
== END 2021-07-20 16:15 | disposition left against medical advice (07) ==
LOC: ER 11:47
PROVIDERS: Student in an Organized Health Care Education/Training Program
DX: J45.901 Unspecified asthma with (acute) exacerbation (principal); Z20.822 Contact with and (suspected) exposure to COVID-19; E66.01 Morbid (severe) obesity due to excess calories; Z98.51 Tubal ligation status; Z79.51 Long term (current) use of inhaled steroids; Z79.899 Other long term (current) drug therapy; Z68.42 Body mass index [BMI] 45.0-49.9, adult